=== PATIENT | male | born 1955 | race Caucasian/White ===

== ENCOUNTER → 2016-06-22 | Outpatient (CLI) | payer OTHER ==
[~2016-06-22] VITALS: Ht 172.7 cm; Wt 75.3 kg
[~2016-06-22] MED LIST: LIDOCAINE 2% INJ 100 MG/5 ML SDV (FOR ANES.) As Ordered ONE; NS 1,000 ML IV SCH; PROPOFOL 200 MG/20 ML VIAL As Ordered ONE
--- NOTE | 2016-06-22 14:00 | ROOR ---
Patient Name: Hua Ramos Procedure Date: 06/22/2016 1:47 PM Date of : 1955 Age: 60 Room: [facility] Gender: Male Note Status: Finalized Procedure: Upper GI endoscopy Indications: Heartburn Providers: Eliseo Tavera MD Referring MD: Jamarcus Rodriguez MD Requesting Provider: Medicines: Monitored Anesthesia Care Complications: No immediate complications. Procedure: Pre-Anesthesia Assessment: - The heart rate, respiratory rate, oxygen saturations, blood pressure, adequacy of pulmonary ventilation, and response to care were monitored throughout the procedure. The Endoscope was introduced through the mouth, and advanced to the second part of duodenum. The upper GI endoscopy was accomplished without difficulty. The patient tolerated the procedure well. Findings: The Z-line was regular and was found 38 cm from the incisors. A small hiatal hernia was present. No other significant abnormalities were identified in a careful examination of the stomach. The exam of the duodenum was otherwise normal. Impression: - Z-line regular, 38 cm from the incisors. - Small hiatal hernia. - No specimens collected. - The examination was otherwise normal. Recommendation: - Patient has a contact number available for emergencies. The signs and symptoms of potential delayed complications were discussed with the patient. Return to normal activities tomorrow. Written discharge instructions were provided to the patient. - Discharge patient to home. - Continue present medications. - Return to referring physician. - The findings and recommendations were discussed with the patient's family. Eliseo Tavera MD Eliseo Tavera MD 06/22/2016 2:00:29 PM This report has been signed electronically. Number of Addenda: 0 Note Initiated On: 06/22/2016 1:47 PM Estimated Blood Loss: Estimated blood loss: none.
--- NOTE | 2016-06-22 14:16 | ROOR ---
Patient Name: Hua Ramos Procedure Date: 06/22/2016 1:49 PM Date of : 1955 Age: 60 Room: [facility] Gender: Male Note Status: Finalized Procedure: Colonoscopy to Cecum Indications: High risk colon cancer surveillance: Personal history of colonic polyps, Last colonoscopy: 2004 Providers: Eliseo Tavera MD Referring MD: Jamarcus Rodriguez MD Requesting Provider: Medicines: Monitored Anesthesia Care Complications: No immediate complications. Procedure: Pre-Anesthesia Assessment: - The heart rate, respiratory rate, oxygen saturations, blood pressure, adequacy of pulmonary ventilation, and response to care were monitored throughout the procedure. The Colonoscope was introduced through the anus and advanced to the cecum, identified by appendiceal orifice and ileocecal valve. The colonoscopy was performed without difficulty. The patient tolerated the procedure well. The quality of the bowel preparation was good. Findings: The perianal and digital rectal examinations were normal. Non-bleeding internal hemorrhoids were found during retroflexion. The hemorrhoids were small and Grade I (internal hemorrhoids that do not prolapse). No other significant abnormalities were identified in a careful examination of the remainder of the colon. The exam was otherwise without abnormality on direct and retroflexion views. Impression: - Non-bleeding internal hemorrhoids. - The examination was otherwise normal on direct and retroflexion views. - No specimens collected. - The exam was otherwise normal to the cecum. Recommendation: - Patient has a contact number available for emergencies. The signs and symptoms of potential delayed complications were discussed with the patient. Return to normal activities tomorrow. Written discharge instructions were provided to the patient. - High fiber diet. - Discharge patient to home. - Continue present medications. - Repeat colonoscopy for surveillance. - Return to referring physician. - The findings and recommendations were discussed with the patient's family. Eliseo Tavera MD Eliseo Tavera MD 06/22/2016 2:15:50 PM This report has been signed electronically. Number of Addenda: 0 Note Initiated On: 06/22/2016 1:49 PM Estimated Blood Loss: Estimated blood loss: none.
[2016-06-22 14:45] VITALS: BP 146/77
== END | disposition home or self-care (01) ==
LOC: M OPP 13:06
PROVIDERS: ATTEND Internal Medicine Gastroenterology
DX: Z12.11 Encounter for screening for malignant neoplasm of colon (principal); Z86.010 Personal history of colon polyps; K64.0 First degree hemorrhoids; R12 Heartburn; K44.9 Diaphragmatic hernia without obstruction or gangrene; Z97.2 Presence of dental prosthetic device (complete) (partial); F17.200 Nicotine dependence, unspecified, uncomplicated; F17.228 Nicotine dependence, chewing tobacco, with other nicotine-induced disorders

== ENCOUNTER → 2018-04-06 | Outpatient (CLI) | payer OTHER ==
[2018-04-06 15:12] LABS: BASO % 0.5 % (0.0-1.0); EOS # 0.2 10^3/uL (0.0-0.50); HEMATOCRIT 51.1 % (42.0-52.0); IMMATURE GRANULOCYTE % 0.4 % (0-3.0); LYMPH # 2.5 10^3/uL (1.5-4.5); MEAN CORPUSCULAR HEMOGLOBIN 31.7 pg (27.0-33.0); MEAN CORPUSCULAR HGB CONC 33.3 g/dl (32.0-36.5); MEAN CORPUSCULAR VOLUME 95.3 fl (80.0-96.0); MONO % 11.7 % (0.0-5.0); NEUTROPHILS # 4.6 10^3/uL (1.8-7.7); NEUTROPHILS % 55.4 % (36.0-66.0); PLATELET COUNT, AUTOMATED 177 10^3/uL (150-450); RED BLOOD COUNT 5.36 10^6/uL (4.30-6.10); RED CELL DISTRIBUTION WIDTH 12.2 % (11.5-14.5); WHITE BLOOD COUNT 8.2 10^3/uL (4.0-10.0)
[2018-04-06 15:37] LABS: ALBUMIN 3.9 GM/DL (3.2-5.2); ALBUMIN/GLOBULIN RATIO 1.03 (1.00-1.93); ALKALINE PHOSPHATASE 107 U/L (45-117); ALT/SGPT 60 U/L (12-78); AMYLASE 61 U/L (25-115); ANION GAP 8 MEQ/L (8-16); AST/SGOT 34 U/L (7-37); BILIRUBIN,TOTAL 0.5 MG/DL (0.2-1.0); BLOOD UREA NITROGEN 17 MG/DL (7-18); CARBON DIOXIDE LEVEL 30 MEQ/L (21-32); CHLORIDE LEVEL 101 MEQ/L (98-107); CREATININE FOR GFR 1.02 MG/DL (0.70-1.30); GLOMERULAR FILTRATION RATE > 60.0 (>49); GLUCOSE, FASTING 123 MG/DL (70-100); POTASSIUM SERUM 4.8 MEQ/L (3.5-5.1); SODIUM LEVEL 139 MEQ/L (136-145); TOTAL PROTEIN 7.7 GM/DL (6.4-8.2)
[2018-04-06 15:54] LABS: LIPASE 148 U/L (73-393)
== END ==
LOC: M WUC 11:58
DX: R10.11 Right upper quadrant pain (principal)
CPT/HCPCS: 82150

== ENCOUNTER → 2018-11-20 | Outpatient (CLI) | payer OTHER ==
--- NOTE | 2018-11-20 09:09 | REP ---
Abdominal aorta ultrasound: Abdominal Aortic Measurements are as follows: Proximal the 2.9 cm AP 3.2 cm TRV Renal Artery Level - cm AP - cm TRV Mid Aorta 2.7 cm AP 2.5 cm TRV Distal Aorta 4.0 cm AP 4.9 cm TRV R Iliac Artery 1.9 cm AP 1.6 cm TRV L Iliac Artery 1.7 cm AP 1.5. cm TRV Impression: There is an aneurysm of the distal abdominal aorta measuring 4.0 cm AP by 4.9 cm transverse by 5.9 cm craniocaudad length. The right and left iliac arteries are ectatic. There is no periaortic hematoma. Electronically Signed by Onel Wolf MD 11/20/2018 09:00 A
== END ==
LOC: M RAD 06:48
PROVIDERS: ATTEND Surgery Vascular Surgery
DX: I71.4 Abdominal aortic aneurysm, without rupture (principal)

== ENCOUNTER → 2019-04-12 | Outpatient (CLI) | payer OTHER ==
[2019-04-12 12:55] LABS: BASO # 0.1 10^3/uL (0.0-0.2); BASO % 0.6 % (0.0-1.0); EOS # 0.2 10^3/uL (0.0-0.5); EOS % 2.2 % (0.0-3.0); LYMPH # 2.5 10^3/uL (1.5-5.0); LYMPH % 29.5 % (24.0-44.0); MEAN CORPUSCULAR HEMOGLOBIN 30.9 pg (27.0-33.0); MEAN CORPUSCULAR HGB CONC 32.5 g/dl (32.0-36.5); MEAN CORPUSCULAR VOLUME 95.1 fl (80.0-96.0); MONO # 0.9 10^3/uL (0.0-0.8); MONO % 10.3 % (0.0-5.0); NEUTROPHILS # 4.9 10^3/uL (1.5-8.5); NEUTROPHILS % 57.1 % (36.0-66.0); PLATELET COUNT, AUTOMATED 166 10^3/uL (150-450); RED BLOOD COUNT 5.66 10^6/uL (4.30-6.10); WHITE BLOOD COUNT 8.6 10^3/uL (4.0-10.0)
[2019-04-12 12:59] LABS: HEMATOCRIT 53.8 % (42.0-52.0); HEMOGLOBIN 17.5 g/dl (13.5-17.5)
[2019-04-12 13:25] LABS: ALBUMIN 3.9 GM/DL (3.2-5.2); ALT/SGPT 44 U/L (12-78); BILIRUBIN,TOTAL 0.8 MG/DL (0.2-1.0); BLOOD UREA NITROGEN 16 MG/DL (7-18); CALCIUM LEVEL 9.3 MG/DL (8.8-10.2); CARBON DIOXIDE LEVEL 29 MEQ/L (21-32); CHLORIDE LEVEL 101 MEQ/L (98-107); CREATININE FOR GFR 1.14 MG/DL (0.70-1.30); GLOMERULAR FILTRATION RATE > 60.0 (>49); GLUCOSE, FASTING 123 MG/DL (70-100); POTASSIUM SERUM 4.7 MEQ/L (3.5-5.1); SODIUM LEVEL 138 MEQ/L (136-145)
== END ==
LOC: M WUC 08:55
PROVIDERS: ATTEND Family Medicine
DX: R10.12 Left upper quadrant pain (principal)

== ENCOUNTER → 2019-06-03 | Outpatient (CLI) | payer OTHER ==
--- NOTE | 2019-06-03 08:11 | REP ---
Abdominal aorta ultrasound: Abdominal Aortic Measurements are as follows: Proximal 2.9 cm AP 3.7 cm TRV Renal Artery Level 2.3 cm AP 3.0 cm TRV Mid Aorta 2.6 cm AP 2.9 cm TRV Distal Aorta 4.0 cm AP 5.0 cm TRV R Iliac Artery 1.6 cm AP 1.8 cm TRV L Iliac Artery 1.5 cm AP 1.7 cm TRV There is an aneurysm of the distal abdominal aorta measuring 4.0 cm AP x 5.0 cm transverse and spanning a craniocaudad length of 6.6 cm. On the prior study dated 11/20/2018 the aneurysm measured 4.0 cm AP by 4.9 cm transverse and measured 5.9 cm craniocaudad. Electronically Signed by Onel Wolf MD 06/03/2019 08:03 A
== END ==
LOC: M RAD 07:29
PROVIDERS: ATTEND Physician Assistant
DX: I71.4 Abdominal aortic aneurysm, without rupture (principal)

== ENCOUNTER → 2019-07-08 | Outpatient (CLI) | payer OTHER ==
[2019-07-08 20:16] LABS: HEMATOCRIT 50.9 % (42.0-52.0); HEMOGLOBIN 16.8 g/dl (13.5-17.5); MEAN CORPUSCULAR HEMOGLOBIN 31.3 pg (27.0-33.0); PLATELET COUNT, AUTOMATED 164 10^3/uL (150-450); RED BLOOD COUNT 5.36 10^6/uL (4.30-6.10); WHITE BLOOD COUNT 9.7 10^3/uL (4.0-10.0)
[2019-07-08 20:21] LABS: ALBUMIN 4.1 GM/DL (3.2-5.2); ALT/SGPT 38 U/L (12-78); BILIRUBIN,TOTAL 0.4 MG/DL (0.2-1.0); BLOOD UREA NITROGEN 15 MG/DL (7-18); CALCIUM LEVEL 9.3 MG/DL (8.8-10.2); CARBON DIOXIDE LEVEL 31 MEQ/L (21-32); CHLORIDE LEVEL 102 MEQ/L (98-107); CREATININE FOR GFR 1.03 MG/DL (0.70-1.30); GLOMERULAR FILTRATION RATE > 60.0 (>49); GLUCOSE, FASTING 115 MG/DL (70-100); POTASSIUM SERUM 4.1 MEQ/L (3.5-5.1); SODIUM LEVEL 137 MEQ/L (136-145); TOTAL PROTEIN 7.7 GM/DL (6.4-8.2)
== END ==
LOC: M WUC 17:17
PROVIDERS: ATTEND Family Medicine
DX: Z01.818 Encounter for other preprocedural examination (principal)

== ENCOUNTER → 2019-07-11 | Outpatient (CLI) | payer OTHER ==
--- NOTE | 2019-07-12 14:48 | ECGEPIP ---
[facility] Test Date: 2019-07-11 Pat Name: ROB DE PAZ Department: Room: - Gender: Male [employer]: TAMIE : 1955 Requested By: DERRELL DOSHI Order Number: [id number] Reading MD: Win Blanc Measurements Intervals [place] Rate: 79 P: 32 MD: 153 QRS: 77 QRSD: 109 T: 73 QT: 348 QTc: 401 Interpretive Statements SINUS RHYTHM WITH MARKED SINUS ARRHYTHMIA Baseline artifact Comparison tracing not on file Electronically Signed on 07-12-2019 14:48:34 EST by Win Blanc
== END ==
LOC: M EKG 09:18
PROVIDERS: ATTEND Family Medicine
DX: Z01.818 Encounter for other preprocedural examination (principal); I49.9 Cardiac arrhythmia, unspecified

== ENCOUNTER 2019-07-15 09:46 | Day surgery (SDC) | payer OTHER ==
[~2019-07-15] VITALS: Ht 172.7 cm; Wt 78.5 kg
[~2019-07-15 09:46] MED LIST changes: -LIDOCAINE 2% INJ 100 MG/5 ML SDV (FOR ANES.) As Ordered ONE; +LR 1,000 ML IV ONE; -NS 1,000 ML IV SCH; -PROPOFOL 200 MG/20 ML VIAL As Ordered ONE
[2019-07-15] MEDS ORDERED: ROCURONIUM BROMIDE 50 MG/5 ML VIAL As Ordered ONE (10:50)
[2019-07-15] MEDS ORDERED: propofoL 200 MG/20 ML VIAL As Ordered ONE (10:50)
[2019-07-15] MEDS ORDERED: dexameTHASONE 4 MG/ML 1ML VIAL (J1100) As Ordered ONE (10:50)
[2019-07-15] MEDS ORDERED: LIDOCAINE 2% INJ 100 MG/5 ML SDV (FOR ANES.) As Ordered ONE (10:50)
[2019-07-15] MEDS ORDERED: ONDANSETRON 4MG/2ML VIAL (J2405) As Ordered ONE (10:50)
[2019-07-15] MEDS ORDERED: KETOROLAC 60 MG/2 ML VIAL (J1885) As Ordered ONE (10:50)
[2019-07-15] MEDS ORDERED: fentaNYL 250 MCG/5 ML INJECTION (J3010) As Ordered ONE (11:44)
[2019-07-15] MEDS ORDERED: MIDAZOLAM INJ 2 MG/2 ML VIAL (J2250) As Ordered ONE (11:44)
[2019-07-15] MEDS ORDERED: BUPIVACAINE/EPIN 0.25% 30 ML VIAL As Ordered ONE (11:45)
[2019-07-15] MEDS ORDERED: CALCIUM CHLORIDE 10% 1 GM/10 ML SYR As Ordered ONE (12:08)
[2019-07-15] MEDS ORDERED: fentaNYL 100 MCG/2 ML INJECTION (J3010) As Ordered ONE (12:29)
[2019-07-15] MEDS ORDERED: SUGAMMADEX SODIUM 500 MG/5 ML VIAL (BRIDION) As Ordered ONE (12:40)
[2019-07-15] MEDS ORDERED: ACETAMINOPHEN 1000MG 100ML IV BTL (OFIRMEV) (J0131 PER 10MG) As Ordered ONE (12:54)
[2019-07-15] MEDS ORDERED: GLYCOPYRROLATE INJ 0.2 MG/ML 2 ML VIAL As Ordered ONE (13:08)
[2019-07-15] MEDS ORDERED: NORCO, ANEXSIA 5/325MG TABLET (HYDROcodone/ACETAMINOPHEN) PO PRN (13:45)
[2019-07-15] MEDS ORDERED: oxyCODONE 5MG TAB PO PRN (14:00)
[2019-07-15] MEDS ORDERED: LR 1,000 ML IV SCH (14:00)
[2019-07-15] MEDS ORDERED: fentaNYL 100 MCG/2 ML INJECTION (J3010) IV PRN (14:00)
[2019-07-15] MEDS ORDERED: ONDANSETRON 4MG/2ML VIAL (J2405) IV PRN (14:00)
[2019-07-15] MEDS ORDERED: HYDROMORPHONE HCL 0.5 MG/ 0.5 ML SYRINGE (J1170 PER 1) IV PRN (14:00)
[2019-07-15 16:20] VITALS: BP 129/72
--- NOTE | 2019-07-16 13:41 | RO ---
DATE OF OPERATION: 07/15/2019 PREOPERATIVE DIAGNOSIS: Symptomatic cholelithiasis. POSTOPERATIVE DIAGNOSIS: Symptomatic cholelithiasis. PROCEDURE: Robotic cholecystectomy. SURGEON: Onel Puga DO ASSIST: None. ANESTHESIA: General. ESTIMATED BLOOD LOSS: 5. COMPLICATIONS: None. INDICATION FOR PROCEDURE: The patient is a 64-year-old male who presents with right upper quadrant pain, found have symptomatic cholelithiasis. Recommendation is to proceed with robotic repair. The risks and benefits of the procedure not limited to but including bleeding, infection, hernia formation, damage to surrounding structures, need for further surgery was discussed in detail with the patient. Informed consent was obtained, and procedure was planned. DESCRIPTION OF PROCEDURE: The patient brought back to operating room #7. After sufficient sedation, the abdomen was sterilely prepped and draped. Next, time-out was done to confirm proper patient and proper procedure. Next, an 8 mm incision was made in the left lower quadrant, Veress needle was inserted, and the abdomen was insufflated with 15 mm of mercury. Veress needle was then removed, and an 8 mm Optiview robotic port was used to gain access to the abdomen. Once the abdomen was entered, three more ports were placed across the upper abdomen. Next, the robots were connected to the port from the console. The fundus of the gallbladder was elevated up towards the right shoulder. Omental adhesions to the gallbladder were taken down using sharp and blunt dissection. Once that was completed, the cystic duct and cystic artery were carefully dissected free using combination of blunt and sharp dissection. Once that was completed, the cystic duct and cystic artery were both doubly clipped and cut. The gallbladder was then dissected free from gallbladder fossa using electrocautery. Once the gallbladder was removed intact, it was placed inside of a 5 mm EndoCatch bag, brought to through the right-sided port site. Once the gallbladder was removed, the abdomen was desufflated. Skin incisions were closed with 4-0 Vicryl subcuticular sutures. The abdomen was cleaned and dried. Steri-Strips, 4x4, and tape were applied, thus ending the procedure. GUTHRI[facility] CORTLAND MEDICAL CENTERMiguel
[2019-07-17] MEDS ORDERED: ACET-897 PO (14:49)
[2019-07-17] MEDS ORDERED: IBUP-1022 PO (14:49)
== END 2019-07-15 16:35 | disposition home or self-care (01) ==
LOC: M SDC 09:46
PROVIDERS: ATTEND Surgery
DX: K80.10 Calculus of gallbladder with chronic cholecystitis without obstruction (principal); K21.9 Gastro-esophageal reflux disease without esophagitis; K44.9 Diaphragmatic hernia without obstruction or gangrene; I71.4 Abdominal aortic aneurysm, without rupture
CPT/HCPCS: 47562; 88304; J0131; J1100; J1885; J2250; J2405; J3010

== ENCOUNTER → 2019-11-04 | Outpatient (CLI) | payer OTHER ==
[~2019-11-04] MED LIST changes: +ACET-897 PO; +IBUP-1022 PO; -LR 1,000 ML IV ONE
[2019-11-04 12:53] LABS: BASO # 0.1 10^3/uL (0.0-0.2); BASO % 0.7 % (0.0-1.0); EOS # 0.2 10^3/uL (0.0-0.5); EOS % 2.4 % (0.0-3.0); HEMATOCRIT 47.9 % (42.0-52.0); HEMOGLOBIN 15.7 g/dl (13.5-17.5); MEAN CORPUSCULAR HEMOGLOBIN 31.3 pg (27.0-33.0); MEAN CORPUSCULAR HGB CONC 32.8 g/dl (32.0-36.5); MEAN CORPUSCULAR VOLUME 95.6 fl (80.0-96.0); MONO # 0.9 10^3/uL (0.0-0.8); MONO % 12.7 % (0.0-5.0); NEUTROPHILS # 4.2 10^3/uL (1.5-8.5); NEUTROPHILS % 56.5 % (36.0-66.0); PLATELET COUNT, AUTOMATED 189 10^3/uL (150-450); RED BLOOD COUNT 5.01 10^6/uL (4.30-6.10); WHITE BLOOD COUNT 7.4 10^3/uL (4.0-10.0)
[2019-11-04 13:23] LABS: ALBUMIN 3.8 GM/DL (3.2-5.2); ALT/SGPT 42 U/L (12-78); BILIRUBIN,TOTAL 0.4 MG/DL (0.2-1.0); BLOOD UREA NITROGEN 14 MG/DL (7-18); CALCIUM LEVEL 9.2 MG/DL (8.8-10.2); CARBON DIOXIDE LEVEL 31 MEQ/L (21-32); CHLORIDE LEVEL 102 MEQ/L (98-107); CREATININE FOR GFR 0.92 MG/DL (0.70-1.30); GLOMERULAR FILTRATION RATE > 60.0 (>49); GLUCOSE, FASTING 155 MG/DL (70-100); POTASSIUM SERUM 4.2 MEQ/L (3.5-5.1); SODIUM LEVEL 138 MEQ/L (136-145); TOTAL PROTEIN 7.3 GM/DL (6.4-8.2)
== END ==
LOC: M WUC 11:12
PROVIDERS: ATTEND Family Medicine
DX: L30.9 Dermatitis, unspecified (principal)

== ENCOUNTER → 2019-11-23 | Outpatient (CLI) | payer OTHER ==
[~2019-11-23] MED LIST changes: +CLAR10CA3 PO
== END ==
LOC: M LABSMTC 09:51
PROVIDERS: ATTEND Anesthesiology
DX: Z03.818 Encounter for observation for suspected exposure to other biological agents ruled out (principal); Z11.59 Encounter for screening for other viral diseases

== ENCOUNTER → 2019-11-28 | Day surgery (SDC) | payer OTHER ==
[~2019-11-28] VITALS: Ht 172.7 cm; Wt 80.5 kg
[~2019-11-28] MED LIST changes: +BSS IRR 500ML/OMIDRIA 4ML IRR BAG (OR ONLY) (J1097 PER ML) As Ordered ONE; +CEFUROXIME 1MG/0.1ML INTRACAMERAL INJ As Ordered ONE; +DUOVISC (0.50ML VISCOAT/0.55ML PROVISC) OPHTH KIT As Ordered ONE; +MIDAZOLAM INJ 2MG/2ML VIAL (J2250 PER 1MG) As Ordered ONE; +OFLOXACIN 0.3 % (OCUFLOX) OPTH SOL 5ML OS ONE; +PHENYLEPHRINE 2.5% OPHTH SOL 2ML OS ONE; +POVIDONE-IODINE 5% OPHTH PREP SOL 30ML As Ordered ONE; +PROPARACAINE 0.5% OPHTH SOL 15ML OS ONE; +TROPICAMIDE 1% OPHTH SOLN 2ML OS ONE; +fentaNYL 100 MCG/2 ML INJECTION (J3010) As Ordered ONE
[2019-11-28 10:45] VITALS: BP 152/87
== END | disposition home or self-care (01) ==
LOC: M SDC 06:50
PROVIDERS: ATTEND Ophthalmology
DX: H25.12 Age-related nuclear cataract, left eye (principal); K44.9 Diaphragmatic hernia without obstruction or gangrene; K76.0 Fatty (change of) liver, not elsewhere classified; I71.4 Abdominal aortic aneurysm, without rupture; Z87.891 Personal history of nicotine dependence; Z79.899 Other long term (current) drug therapy
CPT/HCPCS: 66984; J1097; J2250; J3010

== ENCOUNTER → 2020-01-06 | Outpatient (CLI) | payer OTHER ==
[~2020-01-06] MED LIST changes: -BSS IRR 500ML/OMIDRIA 4ML IRR BAG (OR ONLY) (J1097 PER ML) As Ordered ONE; -CEFUROXIME 1MG/0.1ML INTRACAMERAL INJ As Ordered ONE; -DUOVISC (0.50ML VISCOAT/0.55ML PROVISC) OPHTH KIT As Ordered ONE; +ISOVUE-370 76% 100ML VIAL As Ordered ONE; -MIDAZOLAM INJ 2MG/2ML VIAL (J2250 PER 1MG) As Ordered ONE; -OFLOXACIN 0.3 % (OCUFLOX) OPTH SOL 5ML OS ONE; -PHENYLEPHRINE 2.5% OPHTH SOL 2ML OS ONE; -POVIDONE-IODINE 5% OPHTH PREP SOL 30ML As Ordered ONE; -PROPARACAINE 0.5% OPHTH SOL 15ML OS ONE; -TROPICAMIDE 1% OPHTH SOLN 2ML OS ONE; -fentaNYL 100 MCG/2 ML INJECTION (J3010) As Ordered ONE
--- NOTE | 2020-02-03 09:37 | REP ---
CONTRAST ENHANCED CT OF THE ABDOMEN AND PELVIS CLINICAL: Follow up abdominal aortic aneurysm. TECHNIQUE: Axial contrast enhanced images from the lung bases to the pubic symphysis with coronal and sagittal reformations using 100 cc Isovue-370 intravenous contrast material. COMPARISON: 04/19/2018 FINDINGS: There is an infrarenal abdominal aortic aneurysm which measures approximately 6.5 cm in craniocaudal length beginning roughly 3 cm below the renal arteries and measuring 4.1 cm in true maximal diameter. Aneurysm is partially thrombosed and extends into the right common iliac artery which measures approximately 2.7 cm maximal diameter. No periaortic inflammatory stranding or fluid is identified. No evidence for dissection. The celiac access, superior mesenteric artery, bilateral renal arteries, CASSIDY, and iliac arteries demonstrate satisfactory enhancement without evidence for stenosis or occlusion. Fatty infiltration to the liver. Spleen, pancreas, collapsed gallbladder, bilateral adrenal glands, and kidneys are relatively normal. The enteric system is without obstruction or acute inflammatory process. Pelvis demonstrates normal bladder and age-appropriate prostate/seminal vesicles. No ascites. No free air. No adenopathy. Musculoskeletal structures demonstrate age-related changes without acute osseous abnormality. Lung bases are clear. IMPRESSION: * Partially thrombosed infrarenal abdominal aortic aneurysm measuring 4.1 cm in maximal true diameter which is slight increased from 2018 (4 cm maximal diameter). Aneurysm extends into the right common iliac artery which measures approximately 2.8 cm maximal diameter. * Hepatosteatosis. MTDD
== END ==
LOC: M RAD 09:32
PROVIDERS: ATTEND Physician Assistant
DX: I71.4 Abdominal aortic aneurysm, without rupture (principal); K76.0 Fatty (change of) liver, not elsewhere classified; I74.5 Embolism and thrombosis of iliac artery

== ENCOUNTER → 2020-07-31 | Outpatient (CLI) | payer MEDICARE, OTHER ==
[~2020-07-31] MED LIST changes: -ISOVUE-370 76% 100ML VIAL As Ordered ONE
--- NOTE | 2020-07-31 12:31 | REP ---
INDICATION: ABDOMINAL AORTIC ANEURYSM, WITHOUT RUPTURE COMPARISON: Comparison CT study January 06, 2020 done with IV contrast.. TECHNIQUE: Helical scanning is acquired in 4 mm axial images were reformatted. Coronal and sagittal MPR images were generated and reviewed. FINDINGS: Preliminary digital lifestyle consultant radiograph demonstrates an unremarkable bowel gas pattern. The lung bases are clear on axial CT images. There is no evidence of pleural effusion or upper abdominal ascites. The liver and spleen are normal in size homogeneous in texture. There is moderate diffuse fatty infiltration of the liver. There is some linear fibrosis and acute dystrophic calcification in the gallbladder fossa post cholecystectomy unchanged. No biliary ductal dilation is apparent. Normal adrenal glands are seen. No abnormality is noted in the pancreas. Kidneys appear morphologically intact. There is an infrarenal abdominal aortic aneurysm again noted. This measures 4.2 x 4.2 cm in transverse dimension today. This is felt to be unchanged from the January 06, 2020 study. No Carolann aneurysmal hemorrhage is seen. The left common iliac artery measures 1.6 and the right, 2.6 cm in greatest diameter. This is unchanged as well. There are dystrophic calcifications in the prostate. Urinary bladder and seminal vesicles are unremarkable. There is left colonic diverticulosis without CT evidence of diverticulitis. There are scattered 1 or 2 diverticuli in the ascending colon as well. No abdominal wall defect is seen. No bony destructive lesion is appreciated. Normal appendix is seen extending into the right pelvis. IMPRESSION: Stable 4.2 by 4.2 cm aorto bi iliac aneurysm. Fatty infiltration of the liver. Post cholecystectomy. <Electronically signed by Rogerio Jackson > 07/31/20 [id number]
== END ==
LOC: M RAD 08:55
PROVIDERS: ATTEND Physician Assistant
DX: I71.4 Abdominal aortic aneurysm, without rupture (principal); K76.0 Fatty (change of) liver, not elsewhere classified; Z90.49 Acquired absence of other specified parts of digestive tract

== ENCOUNTER → 2020-08-18 | Outpatient (CLI) | payer MEDICARE, OTHER ==
--- NOTE | 2020-08-18 10:44 | REP ---
INDICATION: OCCLUSION AND STENOSIS OF BILATERAL CAROTID ARTERIES COMPARISON: None. TECHNIQUE: Real-time ultrasound evaluation and duplex Doppler interrogation of the extracranial carotid vasculature is performed. FINDINGS: There is mild plaquing and narrowing in both carotid bulbs extending into the internal and external carotid arteries. Luminal narrowing is less than 50%. There is no evidence of hemodynamically significant stenosis of either internal carotid artery. Normal flow velocities are seen. The vertebral arteries demonstrate normal direction of flow. RIGHT LEFT Peak systolic velocity ICA 61.4 cm/s 62.7 cm/s End diastolic velocity ICA 19.6 cm/s 16.5 cm/s Peak systolic velocity CCA 93.6 cm/s 101.2cm/s Peak systolic velocity ECA 77.1 cm/s 100.8 cm/s ICA/CCA ratio 0.66 0.62 IMPRESSION: Bilateral luminal narrowing of the internal carotid arteries less than 50%. No evidence of hemodynamically significant stenosis. <Electronically signed by Onel Bullard > 08/18/20 [id number]
== END ==
LOC: M RAD 09:48
PROVIDERS: ATTEND Physician Assistant
DX: I65.23 Occlusion and stenosis of bilateral carotid arteries (principal)

== ENCOUNTER → 2021-07-19 | Outpatient (CLI) | payer MEDICARE, OTHER | LOC: M CARPUL 08:42 | PROVIDERS: ATTEND Family Medicine | DX: R06.02 Shortness of breath (principal) ==

== ENCOUNTER → 2024-07-16 | Outpatient (CLI) | payer MEDICARE, OTHER | LOC: M RAD 13:38 | PROVIDERS: ATTEND Family Medicine | DX: Z12.2 Encounter for screening for malignant neoplasm of respiratory organs (principal); F17.211 Nicotine dependence, cigarettes, in remission; I70.0 Atherosclerosis of aorta; I25.10 Atherosclerotic heart disease of native coronary artery without angina pectoris ==